=== PATIENT | female | born 1990 | race American Indian/Alaskan Native ===

== ENCOUNTER 2019-06-30 07:22 | Emergency (ER) | payer SELFPAY ==
[2019-06-30 07:33] VITALS: BP 117/71
[2019-06-30] MEDS ORDERED: IBUPROFEN 800 MG TAB PO ONE (07:53)
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
== END 2019-06-30 07:55 | disposition home or self-care (01) ==
LOC: ED 07:22
DX: M54.5 Low back pain (principal); M79.10 Myalgia, unspecified site; Z79.1 Long term (current) use of non-steroidal anti-inflammatories (NSAID); Z79.899 Other long term (current) drug therapy; V89.2XXA Person injured in unspecified motor-vehicle accident, traffic, initial encounter; Y93.89 Activity, other specified; Y92.488 Other paved roadways as the place of occurrence of the external cause; Y99.8 Other external cause status
CPT/HCPCS: 99283

== ENCOUNTER 2019-08-21 07:42 | Emergency (ER) | payer SELFPAY ==
[2019-08-21 07:58] VITALS: BP 109/59
[2019-08-21] MEDS ORDERED: HYDROcodone/ACETAMINOPHEN 5-325 MG TAB PO ONE (08:39)
[2019-08-21] MEDS ORDERED: CLINDAMYCIN 300 MG CAP PO ONE (08:39)
--- NOTE | 2019-08-21 08:39 | Emergency Department Report ---
ED Female HPI - General Chief complaint: Urogenital-Female Stated complaint: VAG ABSCESS Time Seen by Provider: 08/21/19 08:13 Source: patient Mode of arrival: Ambulatory Limitations: No Limitations - History of Present Illness Initial comments: This is a 29-year-old female who presents to ED complaining of vaginal pain and swelling to the left vaginal outer areas 4 days. Patient states she is a history of vaginal cyst in the past. Patient states that cyst is gotten bigger and more painful since she yesterday. She denies any fever, dysuria, vaginal discharge, irregular vaginal bleeding, abdominal or pelvic pain, nausea vomiting diarrhea - Related Data Previous Rx's Medication Instructions Recorded Last Taken Type Sulfamethoxazole/Trimethoprim 1 each PO BID #14 tablet 08/07/18 Unknown Rx [Bactrim Ds Tablet] traMADoL [Ultram] 50 mg PO Q6HR PRN #12 tablet 08/07/18 Unknown Rx Clindamycin [Clindamycin CAP] 300 mg PO TID #30 capsule 08/21/19 Unknown Rx Ibuprofen [Motrin 800 MG tab] 800 mg PO Q8HR PRN #30 tablet 08/21/19 Unknown Rx Allergies Allergy/AdvReac Type Severity Reaction Status Date / Time No Known Allergies Allergy Unverified 08/07/18 10:57 ED Review of Systems ROS: Stated complaint: VAG ABSCESS Other details as noted in HPI Comment: All other systems reviewed and negative ED Past Medical Hx - Past Medical History Previous Medical History?: Yes Additional medical history: LABIAL ABSCESS - Social History Smoking Status: Current Every Day Smoker Substance Use Type: Marijuana - Medications Home Medications: Home Medications Medication Instructions Recorded Confirmed Last Taken Type Sulfamethoxazole/Trimethoprim 1 each PO BID #14 tablet 08/07/18 Unknown Rx [Bactrim Ds Tablet] traMADoL [Ultram] 50 mg PO Q6HR PRN #12 tablet 08/07/18 Unknown Rx Clindamycin [Clindamycin CAP] 300 mg PO TID #30 capsule 08/21/19 Unknown Rx Ibuprofen [Motrin 800 MG tab] 800 mg PO Q8HR PRN #30 tablet 08/21/19 Unknown Rx ED Physical Exam - General Limitations: No Limitations - GI/Abdominal GI/Abdominal exam: Present: soft, normal bowel sounds. Absent: distended, tenderness, guarding, rebound, mass, bruit - External exam: Present: swelling (left Bartholin cyst). Absent: lesions, lacerations, ecchymosis, bleeding - Extremities Exam Extremities exam: Present: normal inspection - Neurological Exam Neurological exam: Present: alert, oriented X3, normal gait - Psychiatric Psychiatric exam: Present: normal affect - Skin Skin exam: Present: warm, dry, intact. Absent: rash, erythema ED Course Vital Signs 08/21/19 07:56 Temperature 98.4 F Pulse Rate 94 H Respiratory 16 Rate Blood Pressure 109/59 O2 Sat by Pulse 100 Oximetry - I & D Left Vagina Type of Procedure: Simple Site: Bartholin gland Blade Size: 11 I & D Procedure: betadine prep, sterile drapes applied, sterile dressing applied Progress: Patient positioned appropriately, 15cc lidocaine without epinephrine was used as a local anesthetic. #11 blade scalpal used for single incision. . Copius drainage of pus. Procedure tolerated without complications. Wound dressed with sterile 4x4 guaze and paper tape. Pt tolerated procedure well. ED Medical Decision Making - Medical Decision Making 29-year-old female presents with Bartholin cyst. Patient received pain medication and one dose of clindamycin in the ED I&D was performed, patient tolerated procedure well. See I&D procedure note Discussed with the patient of follow-up with [facility] referral was given 2/m woman [facility] [facility]. Signs are normal patient was in no acute distress. Critical care attestation.: If time is entered above; I have spent that time in minutes in the direct care of this critically ill patient, excluding procedure time. ED Disposition Clinical Impression: Bartholin gland cyst Disposition: TO HOME OR SELFCARE Is pt being admited?: No Does the pt Need Aspirin: No Condition: Stable Instructions: Bartholin Cyst (ED), Incision and Drainage (ED) Additional Instructions: Make sure to follow up with the primary care physician as discussed. Take all your medications as you've been prescribed. If you have any worsening symptoms or develop new symptoms please return to ED immediately. Prescriptions: Clindamycin [Clindamycin CAP] 300 mg PO TID #30 capsule Ibuprofen [Motrin 800 MG tab] 800 mg PO Q8HR PRN #30 tablet PRN Reason: Pain, Moderate (4-6) Referrals: [facility] [Provider Group] - 3-5 Days [facility] [Outside] - 3-5 Days Forms: Accompanied Note, Work/School Release Form(ED)
== END 2019-08-21 10:02 | disposition home or self-care (01) ==
LOC: ED 07:42
DX: N75.0 Cyst of Bartholin's gland (principal); N76.4 Abscess of vulva; F17.200 Nicotine dependence, unspecified, uncomplicated; F12.10 Cannabis abuse, uncomplicated; Z79.1 Long term (current) use of non-steroidal anti-inflammatories (NSAID); Z79.899 Other long term (current) drug therapy

== ENCOUNTER 2020-01-08 03:28 | Emergency (ER) | payer SELFPAY ==
[2020-01-08 03:48] VITALS: BP 113/76
[2020-01-08] MEDS ORDERED: HYDROcodone/ACETAMINOPHEN 7.5-325MG TAB PO ONE (04:16)
[2020-01-08] MEDS ORDERED: ONDANSETRON 4 MG ODT TAB PO ONE (04:16)
[2020-01-08] MEDS ORDERED: IBUPROFEN 600 MG TAB PO ONE (04:16)
[2020-01-08] MEDS ORDERED: AMOXICILLIN/K CLAV 875/125MG TAB PO ONE (04:16)
--- NOTE | 2020-01-08 04:41 | Emergency Department Report ---
ED General Adult HPI - General Chief complaint: Dental/Oral Stated complaint: TOOTHACHE/INFECTION Source: patient Mode of arrival: Ambulatory Limitations: No Limitations - History of Present Illness Initial comments: Patient is a 29-year-old -Malag[place] female with no past medical history who presents to the ED with complaint of acute onset persistent severe painful swollen left mandibular gums and premolar molar toothache for the last 1 week worse in the last 2 days. Patient states that she has been taking [id number] pain medications with no relief. Patient states that in the last 8 hours she has not been able to sleep because of severe toothache and gum swelling. Patient denies fever, chills, nausea, vomiting, chest pain, shortness of breath, dizziness, syncope, sore throat, headache, change in vision, nasal and sinus congestion or cough. MD Complaint: right mandibular -: Sudden, week(s) (1) Location: mouth Severity scale (0 -10): 10 Quality: aching, sharp Consistency: constant Improves with: none Worsens with: none Associated Symptoms: denies other symptoms. denies: confusion, chest pain, cough, diaphoresis, fever/chills, headaches, loss of appetite, malaise, nausea/vomiting, rash, seizure, shortness of breath, syncope, weakness, other Treatments Prior to Arrival: none - Related Data Previous Rx's Medication Instructions Recorded Last Taken Type Sulfamethoxazole/Trimethoprim 1 each PO BID #14 tablet 08/07/18 Unknown Rx [Bactrim Ds Tablet] traMADoL [Ultram] 50 mg PO Q6HR PRN #12 tablet 08/07/18 Unknown Rx Clindamycin [Clindamycin CAP] 300 mg PO TID #30 capsule 08/21/19 Unknown Rx Ibuprofen [Motrin 800 MG tab] 800 mg PO Q8HR PRN #30 tablet 08/21/19 Unknown Rx Acetaminophen/Codeine [Tylenol 1 tab PO Q6H PRN #12 tab 01/08/20 Unknown Rx /Codeine # 3 tab] Clindamycin [Clindamycin CAP] 300 mg PO Q8HR #60 capsule 01/08/20 Unknown Rx Ketorolac [Toradol] 10 mg PO Q8H PRN #20 tablet 01/08/20 Unknown Rx Allergies Allergy/AdvReac Type Severity Reaction Status Date / Time No Known Allergies Allergy Unverified 08/07/18 10:57 ED Review of Systems ROS: Stated complaint: TOOTHACHE/INFECTION Other details as noted in HPI Constitutional: denies: chills, fever Eyes: denies: eye pain, eye discharge, vision change ENT: dental pain (severe right mandibular premolar and molar toothache), other (swollen painful right mandibular gums). denies: ear pain, throat pain Respiratory: denies: cough, orthopnea, shortness of breath, wheezing Cardiovascular: denies: chest pain, palpitations Endocrine: no symptoms reported. denies: excessive sweating, flushing, intolerance to cold, increased hunger, increased urine Gastrointestinal: denies: abdominal pain, nausea, vomiting, diarrhea Genitourinary: denies: urgency, dysuria, discharge Musculoskeletal: denies: back pain, joint swelling, arthralgia Skin: denies: rash, lesions Neurological: denies: headache, weakness, paresthesias Psychiatric: denies: anxiety, depression Hematological/Lymphatic: denies: easy bleeding, easy bruising ED Past Medical Hx - Past Medical History Previous Medical History?: No Additional medical history: LABIAL ABSCESS - Surgical History Past Surgical History?: No - Social History Smoking Status: Current Every Day Smoker Substance Use Type: Marijuana - Medications Home Medications: Home Medications Medication Instructions Recorded Confirmed Last Taken Type Sulfamethoxazole/Trimethoprim 1 each PO BID #14 tablet 08/07/18 Unknown Rx [Bactrim Ds Tablet] traMADoL [Ultram] 50 mg PO Q6HR PRN #12 tablet 08/07/18 Unknown Rx Clindamycin [Clindamycin CAP] 300 mg PO TID #30 capsule 08/21/19 Unknown Rx Ibuprofen [Motrin 800 MG tab] 800 mg PO Q8HR PRN #30 tablet 08/21/19 Unknown Rx Acetaminophen/Codeine [Tylenol 1 tab PO Q6H PRN #12 tab 01/08/20 Unknown Rx /Codeine # 3 tab] Clindamycin [Clindamycin CAP] 300 mg PO Q8HR #60 capsule 01/08/20 Unknown Rx Ketorolac [Toradol] 10 mg PO Q8H PRN #20 tablet 01/08/20 Unknown Rx ED Physical Exam - General Limitations: No Limitations General appearance: alert, in no apparent distress - Head Head exam: Present: atraumatic, normocephalic, normal inspection - Eye Eye exam: Present: normal appearance, PERRL, EOMI Pupils: Present: normal accommodation - ENT ENT exam: Present: mucous membranes moist, TM's normal bilaterally, normal external ear exam, other (Swollen severely tender right mandibular gingiva; Right premolar and molar teeth tenderness) - Neck Neck exam: Present: normal inspection, full ROM. Absent: tenderness, lymphadenopathy - Respiratory Respiratory exam: Present: normal lung sounds bilaterally. Absent: respiratory distress, wheezes, rales, chest wall tenderness, decreased breath sounds, p rolonged expiratory - Cardiovascular Cardiovascular Exam: Present: regular rate, normal rhythm, normal heart sounds. Absent: systolic murmur, diastolic murmur, rubs, gallop - GI/Abdominal GI/Abdominal exam: Present: soft, normal bowel sounds. Absent: tenderness, guarding, rebound, hyperactive bowel sounds, hypoactive bowel sounds, organomegaly - Extremities Exam Extremities exam: Present: normal inspection, full ROM, normal capillary refill - Back Exam Back exam: Present: normal inspection, full ROM. Absent: tenderness, CVA tenderness (R), muscle spasm, paraspinal tenderness, vertebral tenderness - Neurological Exam Neurological exam: Present: alert, oriented X3, CN II-XII intact, normal gait, reflexes normal - Psychiatric Psychiatric exam: Present: normal affect, normal mood - Skin Skin exam: Present: warm, dry, intact, normal color. Absent: rash ED Course Vital Signs 01/08/20 03:47 Temperature 99.2 F Pulse Rate 84 Respiratory 18 Rate Blood Pressure 113/76 O2 Sat by Pulse 99 Oximetry ED Medical Decision Making - Medical Decision Making This is a 29-year-old female who presented to the ED with persistent painful swollen right mandibular gingiva with severely painful premolar molar toothache for the last 1 week, worse in the last 2 days. In the ED, patient is alert and oriented x3 and is not in distress. Patient was treated for pain in the ED and given initial oral antibiotics in the ED. Patient will discharge home on medications and advised to follow-up with her dentist in 7 to 10 days for reevaluation. Patient was also referred to the [facility] for follow-up if she is unable to obtain any appointment with her regular dentist. Patient was advised to return to the ED immediately if symptoms get worse. - Differential Diagnosis dental abscess; dental caries; gingivitis Critical care attestation.: If time is entered above; I have spent that time in minutes in the direct care of this critically ill patient, excluding procedure time. ED Disposition Clinical Impression: Dental abscess, Acute gingivitis, Dental caries Disposition: TO HOME OR SELFCARE Is pt being admited?: No Does the pt Need Aspirin: No Condition: Stable Instructions: Dental Abscess (ED), Dental Caries (ED), Gingivitis (ED) Additional Instructions: Take medication with food drink plenty of fluids and follow-up with your primary care physician or dentist in 7 to 10 days for reevaluation. Return to the ED immediately if symptoms get worse. Prescriptions: Clindamycin [Clindamycin CAP] 300 mg PO Q8HR #60 capsule Ketorolac [Toradol] 10 mg PO Q8H PRN #20 tablet PRN Reason: Pain Acetaminophen/Codeine [Tylenol /Codeine # 3 tab] 1 tab PO Q6H PRN #12 tab PRN Reason: Pain , Severe (7-10) Referrals: [facility] [Outside] - 7-10 days Time of Disposition: 04:44 Print Language: SYRIAN
== END 2020-01-08 05:22 | disposition home or self-care (01) ==
LOC: ED 03:28
DX: K04.7 Periapical abscess without sinus (principal); K05.00 Acute gingivitis, plaque induced; K02.9 Dental caries, unspecified; N76.4 Abscess of vulva; F17.200 Nicotine dependence, unspecified, uncomplicated; F12.10 Cannabis abuse, uncomplicated; Z79.1 Long term (current) use of non-steroidal anti-inflammatories (NSAID); Z79.2 Long term (current) use of antibiotics; Z79.899 Other long term (current) drug therapy
CPT/HCPCS: 99282